=== PATIENT | female | born 1995 | race Hispanic/Latino ===

== ENCOUNTER 2018-01-01 21:02 | Emergency (ER) | payer MEDICAID ==
[2018-01-01] MEDS ORDERED: SODIUM CHLORIDE 0.9% 500ML 500 ML IV ONE (22:15)
[2018-01-01] MEDS ORDERED: ONDANSETRON HCL 4 MG/2 ML VIAL ONE (22:15)
[2018-01-01 22:17] LABS: BASOPHILS % (AUTO) 0.2 % (0.0-5.0); EOSINOPHILS % (AUTO) 0.7 % (0.0-8.0); HEMATOCRIT 38.4 % (36-48); LYMPHOCYTES % (AUTO) 10.1 % (21.0-51.0); MEAN CORPUSCULAR HEMOGLOBIN 27.6 pg (27.0-33.0); MEAN CORPUSCULAR HGB CONC 33.7 g/dL (32.0-36.0); MEAN CORPUSCULAR VOLUME 81.9 fL (80-100); PLATELET COUNT (AUTO) 296 K/uL (130-400); RED BLOOD CELL COUNT(AUTO) 4.69 MIL/uL (4.00-5.50); RED CELL DISTRIBUTION WIDTH 13.1 % (11.0-15.5); WHITE BLOOD COUNT (AUTO) 7.5 K/uL (4.8-10.8)
[2018-01-01 22:24] LABS: CREATININE 0.7 mg/dL (0.5-1.5); POTASSIUM 3.3 mmol/L (3.5-5.1)
[2018-01-01 22:43] LABS: APPEARANCE,URINE Cloudy (CLEAR); BILIRUBIN,URINE Negative (NEGATIVE); COLOR,URINE Dark Yellow (YELLOW); GLUCOSE, URINE (UA) Negative (NEGATIVE); KETONES,URINE Trace mg/dL (NEGATIVE); LEUKOCYTE ESTERASE ,URINE Small (NEGATIVE); NITRATE,URINE Negative (NEGATIVE); OCCULT BLOOD,URINE Negative (NEGATIVE); PROTEIN,URINE Negative (NEGATIVE)
[2018-01-01 22:50] LABS: ALBUMIN 3.4 g/dL (3.5-5.0); BILIRUBIN,TOTAL 0.5 mg/dL (0.2-1.0); TOTAL PROTEIN, SERUM 8.2 g/dL (6.0-8.3)
[2018-01-01 22:52] LABS: BACTERIA,URINE Rare /HPF (None Seen); HCG,QUAL RESULT POSITIVE (NEGATIVE); MUCUS,URINE Few LPF (None Seen); RBC,URINE None Seen /HPF (0-1); SQUAMOUS EPITHELIAL CELL,UR Few /HPF (0-2)
== END 2018-01-01 23:11 | disposition home or self-care (01) ==
LOC: EDH 21:02
DX: O21.0 Mild hyperemesis gravidarum (principal); O26.891 Other specified pregnancy related conditions, first trimester; R10.9 Unspecified abdominal pain; Z3A.08 8 weeks gestation of pregnancy
CPT/HCPCS: 36415; 80053; 81001; 81025; 84702; 85025; 96374; 99284; J2405; J7040

== ENCOUNTER 2018-03-26 19:15 | Emergency (ER) | payer MEDICAID ==
[2018-03-26 20:08] LABS: BASOPHILS % (AUTO) 0.3 % (0.0-5.0); EOSINOPHILS % (AUTO) 0.9 % (0.0-8.0); HEMATOCRIT 33.8 % (36-48); LYMPHOCYTES % (AUTO) 7.7 % (21.0-51.0); MEAN CORPUSCULAR HEMOGLOBIN 28.1 pg (27.0-33.0); MEAN CORPUSCULAR HGB CONC 34.4 g/dL (32.0-36.0); MEAN CORPUSCULAR VOLUME 81.6 fL (80-100); NEUTROPHILS % (AUTO) 87.1 % (40.0-77.0); PLATELET COUNT (AUTO) 272 K/uL (130-400); RED BLOOD CELL COUNT(AUTO) 4.14 MIL/uL (4.00-5.50); RED CELL DISTRIBUTION WIDTH 14.2 % (11.0-15.5); WHITE BLOOD COUNT (AUTO) 10.6 K/uL (4.8-10.8)
[2018-03-26 20:15] LABS: CREATININE 0.6 mg/dL (0.5-1.5); POTASSIUM 3.7 mmol/L (3.5-5.1)
[2018-03-26 20:19] LABS: BILIRUBIN,TOTAL 0.5 mg/dL (0.2-1.0); TOTAL PROTEIN, SERUM 7.9 g/dL (6.0-8.3)
== END 2018-03-26 20:47 | disposition home or self-care (01) ==
LOC: EDH 19:15
DX: O21.9 Vomiting of pregnancy, unspecified (principal); R21 Rash and other nonspecific skin eruption; Z3A.18 18 weeks gestation of pregnancy
CPT/HCPCS: 36415; 80053; 85025

== ENCOUNTER 2018-06-21 13:06 | Emergency (ER) | payer MEDICAID | END 2018-06-21 14:49 | disposition home or self-care (01) | LOC: EDH 13:06 | DX: L02.214 Cutaneous abscess of groin (principal); L03.314 Cellulitis of groin; A49.01 Methicillin susceptible Staphylococcus aureus infection, unspecified site | CPT/HCPCS: 10060 ==

== ENCOUNTER 2018-06-23 13:50 | Emergency (ER) | payer MEDICAID | END 2018-06-23 15:36 | disposition home or self-care (01) | LOC: EDH 13:50 | DX: L02.415 Cutaneous abscess of right lower limb (principal); Z48.01 Encounter for change or removal of surgical wound dressing | CPT/HCPCS: 99281 ==

== ENCOUNTER 2018-07-17 22:52 | Observation (INO) | payer MEDICAID ==
[~2018-07-17] VITALS: Ht 160 cm; Wt 81.6 kg
[2018-07-17 23:30] VITALS: BP 126/77
[2018-07-17] MEDS: LACTATED RINGERS 1000ML 1,000 ML IV SCH (23:30)
[2018-07-17 23:46] LABS: APPEARANCE,URINE Clear (CLEAR); BILIRUBIN,URINE Negative (NEGATIVE); GLUCOSE, URINE (UA) Negative (NEGATIVE); KETONES,URINE Negative (NEGATIVE); LEUKOCYTE ESTERASE ,URINE Small (NEGATIVE); NITRATE,URINE Negative (NEGATIVE); OCCULT BLOOD,URINE Negative (NEGATIVE); PH,URINE 6.5 (5.0-8.0); PROTEIN,URINE Negative (NEGATIVE)
[2018-07-17 23:47] LABS: COLOR,URINE YELLOW (YELLOW)
[2018-07-18 00:04] LABS: BACTERIA,URINE Few /HPF (None Seen); RBC,URINE 0-1 /HPF (0-1)
[2018-07-18] MEDS ORDERED: FERR-82 PO (00:06)
[2018-07-18] MEDS ORDERED: PREN1TAB80 PO (00:06)
[2018-07-18] MEDS ORDERED: TERBUTALINE SULFATE VIAL 1MG/ML SQ ONE (00:28)
[2018-07-18] MEDS ORDERED: CELESTONE SOLUSPAN 6 MG/ML 5ML VIAL ONE (00:28)
[2018-07-18] MEDS ORDERED: LACTATED RINGERS 1000ML 1,000 ML IV SCH (00:30)
[2018-07-18] MEDS ORDERED: PHARMACY COMMUNICATION MISC SCH (00:30)
[2018-07-18] MEDS ORDERED: TERBUTALINE SULFATE VIAL 1MG/ML SQ SCH ×2 (00:30)
[2018-07-18] MEDS: CELESTONE SOLUSPAN 6 MG/ML 5ML VIAL IM SCH ×2 (00:37→01:00)
[2018-07-18] MEDS: LACTATED RINGERS 1000ML 1,000 ML IV SCH (04:18)
[2018-07-18 05:51] LABS: AMPHET/METH SCREEN,URINE NEGATIVE (NEGATIVE); BARBITURATE SCREEN, URINE NEGATIVE (NEGATIVE); BENZODIAZEPINES SCREEN,URINE NEGATIVE (NEGATIVE); CANNABINOID SCREEN,URINE NEGATIVE (NEGATIVE); COCAINE SCREEN,URINE NEGATIVE (NEGATIVE); OPIATE SCREEN,URINE NEGATIVE (NEGATIVE); PHENCYCLIDINE SCREEN,URINE NEGATIVE (NEGATIVE)
== END 2018-07-18 09:32 | disposition home or self-care (01) ==
LOC: EDH 22:52 → LDH 23:03
PROVIDERS: ADMIT Obstetrics & Gynecology; ATTEND Obstetrics & Gynecology
DX: O26.893 Other specified pregnancy related conditions, third trimester (principal); N89.8 Other specified noninflammatory disorders of vagina; R19.7 Diarrhea, unspecified; Z3A.34 34 weeks gestation of pregnancy; Z79.899 Other long term (current) drug therapy
CPT/HCPCS: 80305; 81001; 96360; 96361; 96372 ×2; 99284; G0378 ×12; J0702; J3105; J7120 ×2

== ENCOUNTER 2018-07-18 21:43 | Observation (INO) | payer MEDICAID ==
[~2018-07-18] VITALS: Ht 160 cm; Wt 81.6 kg
[~2018-07-18 21:43] MED LIST: FERR-82 PO; PREN1TAB80 PO
[2018-07-18] MEDS ORDERED: PHARMACY COMMUNICATION MISC ONE (22:00)
[2018-07-18] MEDS ORDERED: CELESTONE SOLUSPAN 6 MG/ML 5ML VIAL IM SCH (22:30)
== END 2018-07-18 22:35 | disposition home or self-care (01) ==
LOC: LDH 21:43
PROVIDERS: ADMIT Obstetrics & Gynecology; ATTEND Obstetrics & Gynecology
DX: Z34.90 Encounter for supervision of normal pregnancy, unspecified, unspecified trimester (principal); Z3A.00 Weeks of gestation of pregnancy not specified
CPT/HCPCS: 96372; G0378 ×2

== ENCOUNTER 2018-08-05 21:32 | Observation (INO) | payer MEDICAID ==
[~2018-08-05] VITALS: Ht 160 cm; Wt 86.2 kg
[2018-08-05 21:57] VITALS: BP 118/69
[2018-08-05] MEDS ORDERED: LACTATED RINGERS 1000ML 1,000 ML IV SCH (23:15)
[2018-08-05] MEDS ORDERED: LACTATED RINGERS 1000ML 1,000 ML IV ONE (23:48)
== END 2018-08-06 07:55 | disposition home or self-care (01) ==
LOC: EDH 21:32 → LDH 21:33
PROVIDERS: ADMIT Obstetrics & Gynecology; ATTEND Obstetrics & Gynecology
DX: O62.9 Abnormality of forces of labor, unspecified (principal); O26.893 Other specified pregnancy related conditions, third trimester; N89.8 Other specified noninflammatory disorders of vagina; Z3A.37 37 weeks gestation of pregnancy
CPT/HCPCS: 76805; 99284; G0378 ×10; J7120; 96360; 96361

== ENCOUNTER 2018-08-16 23:52 | Observation (INO) | payer MEDICAID ==
[~2018-08-16] VITALS: Ht 160 cm; Wt 87.1 kg
[2018-08-17] MEDS ORDERED: LACTATED RINGERS 1000ML 1,000 ML IV PRN (00:10)
[2018-08-17 00:48] LABS: APPEARANCE,URINE Clear (CLEAR); BILIRUBIN,URINE Negative (NEGATIVE); COLOR,URINE Yellow (YELLOW); GLUCOSE, URINE (UA) Negative (NEGATIVE); KETONES,URINE Negative (NEGATIVE); LEUKOCYTE ESTERASE ,URINE Moderate (NEGATIVE); NITRATE,URINE Negative (NEGATIVE); OCCULT BLOOD,URINE Small (NEGATIVE); PH,URINE 6.5 (5.0-8.0); PROTEIN,URINE Trace mg/dL (NEGATIVE)
[2018-08-17 00:51] LABS: HEMATOCRIT 33.5 % (36-48); MEAN CORPUSCULAR HEMOGLOBIN 26.9 pg (27.0-33.0); MEAN CORPUSCULAR HGB CONC 32.6 g/dL (32.0-36.0); MEAN CORPUSCULAR VOLUME 82.5 fL (80-100); PLATELET COUNT (AUTO) 288 K/uL (130-400); RED BLOOD CELL COUNT(AUTO) 4.05 MIL/uL (4.00-5.50); WHITE BLOOD COUNT (AUTO) 12.3 K/uL (4.8-10.8)
[2018-08-17] MEDS ORDERED: LACTATED RINGERS 500 ML 500 ML IV PRN (01:00)
[2018-08-17] MEDS ORDERED: EPHEDRINE SULFATE 50 MG/ML AMPULE IVP PRN (01:00)
[2018-08-17] MEDS ORDERED: NALOXONE HCL 0.4 MG/1 ML ML IV PRN (01:00)
[2018-08-17] MEDS ORDERED: PROMETHAZINE HCL 25 MG/ML 1ML AMPULE IM PRN (01:00)
[2018-08-17] MEDS ORDERED: MEPERIDINE-PF 50 MG/ML SYG IVP PRN (01:00)
[2018-08-17] MEDS ORDERED: ROPIVACAINE 0.2% 100ML VIAL 100 ML EP SCH (01:00)
[2018-08-17 01:18] LABS: BACTERIA,URINE Rare /HPF (None Seen); MUCUS,URINE Few LPF (None Seen); SQUAMOUS EPITHELIAL CELL,UR Moderate /HPF (0-2)
[2018-08-17 07:52] LABS: RAPID PLASMA REAGIN NONREACTIVE (NONREACTIVE)
[2018-08-18 07:26] LABS: HEPATITIS Bs ANTIGEN SCREEN P Negative (Negative)
== END 2018-08-17 14:15 | disposition home or self-care (01) ==
LOC: EDH 23:52 → LDH 23:53 → OBSVTOIN 23:53 → INTOOBSV 23:53
PROVIDERS: ADMIT Obstetrics & Gynecology; ATTEND Obstetrics & Gynecology
DX: O60.03 Preterm labor without delivery, third trimester (principal); Z3A.39 39 weeks gestation of pregnancy
CPT/HCPCS: 36415; 81001; 85027; 86592; 86701; 86850; 86900; 86901; 87340; 87390; 99284; G0378 ×14; J7120 ×2; 96360; 96361

== ENCOUNTER 2020-12-26 15:30 | Emergency (ER) | payer MEDICAID ==
[~2020-12-26] VITALS: Ht 160 cm; Wt 87.5 kg
[2020-12-26] MEDS ORDERED: ACETAMINOPHEN 500 MG TABLET PO ONE (16:00)
[2020-12-26] MEDS ORDERED: ACET-3194 PO (16:51)
[2020-12-26] MEDS ORDERED: ACETAMINOPHEN 500 MG TABLET ONE (17:07)
[2020-12-26 17:18] VITALS: BP 118/78
== END 2020-12-26 17:18 | disposition home or self-care (01) ==
LOC: EDH 15:30
DX: O9A.211 Injury, poisoning and certain other consequences of external causes complicating pregnancy, first trimester (principal); S93.402A Sprain of unspecified ligament of left ankle, initial encounter; Z79.899 Other long term (current) drug therapy; Z3A.09 9 weeks gestation of pregnancy; X50.1XXA Overexertion from prolonged static or awkward postures, initial encounter; Y93.89 Activity, other specified; Y92.89 Other specified places as the place of occurrence of the external cause; Y99.8 Other external cause status
CPT/HCPCS: 29515; 73610

== ENCOUNTER 2022-04-28 19:30 | Emergency (ER) | payer MEDICAID ==
[~2022-04-28] VITALS: Ht 157.5 cm; Wt 79.4 kg
[~2022-04-28 19:30] MED LIST changes: +ACET-3194 PO
[2022-04-28] MEDS ORDERED: KETOROLAC 30MG VIAL (30MG/ML) ONE (19:38)
[2022-04-28 19:56] LABS: APPEARANCE,URINE CLEAR (CLEAR); BILIRUBIN,URINE NEGATIVE (NEGATIVE); COLOR,URINE COLORLESS (YELLOW); GLUCOSE, URINE (UA) NEGATIVE (NEGATIVE); KETONES,URINE NEGATIVE (NEGATIVE); LEUKOCYTE ESTERASE ,URINE NEGATIVE Leu/uL (NEGATIVE); NITRATE,URINE NEGATIVE (NEGATIVE); OCCULT BLOOD,URINE NEGATIVE (NEGATIVE); PH,URINE 6.5 (5.0-8.0); PROTEIN,URINE NEGATIVE (NEGATIVE); UROBILINOGEN,URINE 0.2 mg/dL (0.2-1.0)
[2022-04-28 20:04] LABS: AMPHET/METH SCREEN,URINE NEGATIVE (NEGATIVE); BARBITURATE SCREEN, URINE NEGATIVE (NEGATIVE); BENZODIAZEPINES SCREEN,URINE NEGATIVE (NEGATIVE); CANNABINOID SCREEN,URINE NEGATIVE (NEGATIVE); COCAINE SCREEN,URINE NEGATIVE (NEGATIVE); OPIATE SCREEN,URINE NEGATIVE (NEGATIVE); PHENCYCLIDINE SCREEN,URINE NEGATIVE (NEGATIVE)
[2022-04-28 20:29] LABS: BASOPHILS % (AUTO) 0.4 % (0.0-5.0); EOSINOPHILS % (AUTO) 1.5 % (0.0-8.0); HEMATOCRIT 36.4 % (36-48); LYMPHOCYTES % (AUTO) 19.4 % (21.0-51.0); MEAN CORPUSCULAR HEMOGLOBIN 24.1 pg (27.0-33.0); MEAN CORPUSCULAR HGB CONC 31.6 g/dL (32.0-36.0); MEAN CORPUSCULAR VOLUME 76.3 fL (79-99); MONOCYTES % (AUTO) 5.9 % (3.0-13.0); NEUTROPHILS % (AUTO) 72.3 % (40.0-77.0); PLATELET COUNT (AUTO) 371 K/uL (130-400); RED BLOOD CELL COUNT(AUTO) 4.77 MIL/uL (4.00-5.50); RED CELL DISTRIBUTION WIDTH 15.5 % (11.0-15.5); WHITE BLOOD COUNT (AUTO) 12.1 K/uL (4.8-10.8)
[2022-04-28 20:37] LABS: CARBON DIOXIDE 27 mmol/L (21-32); CHLORIDE 101 mmol/L (101-111); CREATININE 0.8 mg/dL (0.5-1.5); GLOMERULAR FILTR. RATE CALC 94 mL/min (>60); GLUCOSE,RANDOM 102 mg/dL (70-105); POTASSIUM 3.5 mmol/L (3.5-5.1); SODIUM SERUM 134 mmol/L (136-145); UREA NITROGEN, BLOOD 13 mg/dL (7-18)
[2022-04-28 20:42] LABS: ALANINE AMINOTRANSFERASE 18 U/L (12-78); ALBUMIN 3.4 g/dL (3.5-5.0); ALCOHOL, BLOOD < 3 mg/dL (0-10); ASPARTATE AMINOTRANSFERASE 12 U/L (10-37); CREATINE KINASE, TOTAL 101 U/L (21-232); SALICYLATE < 2.8 mg/dL (2.8-20.0); TOTAL PROTEIN, SERUM 8.3 g/dL (6.0-8.3)
[2022-04-28 20:43] LABS: ACETAMINOPHEN < 1 mcg/mL (10-30)
[2022-04-28 23:58] VITALS: BP 134/79
== END 2022-04-29 01:36 ==
LOC: EDH 19:30
DX: T48.1X2A Poisoning by skeletal muscle relaxants [neuromuscular blocking agents], intentional self-harm, initial encounter (principal); O99.345 Other mental disorders complicating the puerperium; F53.0 Postpartum depression; Z20.822 Contact with and (suspected) exposure to COVID-19; Z79.899 Other long term (current) drug therapy; Y92.89 Other specified places as the place of occurrence of the external cause
CPT/HCPCS: 99285; 87635; 82550; 80053; 80305; 84703; 85025; 81003; 36415; 93005 ×2; G0481; C9803; J1885